=== PATIENT | female | born 1995 | race Caucasian/White ===

== ENCOUNTER → 2023-04-16 15:21 | Outpatient (BNVA) | payer OTHER, SELFPAY | PROVIDERS: Visit Provider Obstetrics & Gynecology | DX: N97.9 Female infertility, unspecified (principal) | CPT/HCPCS: 76830 ==

== ENCOUNTER → 2023-04-21 12:00 | Outpatient (BNVA) | payer OTHER, SELFPAY | PROVIDERS: Visit Provider Obstetrics & Gynecology | DX: N97.9 Female infertility, unspecified (principal) | CPT/HCPCS: 82670; 83001; 83520; 84443 ==

== ENCOUNTER → 2023-05-09 15:30 | Outpatient (BNVA) | payer OTHER, SELFPAY | PROVIDERS: Visit Provider Obstetrics & Gynecology | DX: N97.9 Female infertility, unspecified (principal) | CPT/HCPCS: 84144 ==

== ENCOUNTER 2023-07-14 07:52 | Outpatient (CLI) | payer OTHER, SELFPAY ==
--- NOTE | 2023-07-14 08:30 | FL_ITS ---
WS: [id number] HYSTEROGRAM PERFORMED UNDER FLUOROSCOPY HISTORY: N97.9 - Female infertility, unspecified. FLUOROSCOPY TIME: 0min [id number] minutes. # of spot films: 3. Cannulization of the cervix performed by Dr. Hall. During contrast injection there is good distention of the endometrial cavity. Normal appearance of th e fallopian tubes with spill rapidly into the peritoneal cavity. No hydrosalpinx or obstruction. IMPRESSION: Patent bilateral fallopian tubes. No uterine body mass.
--- NOTE | 2023-07-14 17:00 | P.PCN_ITS ---
Procedure Note: Pre-procedure diagnosis: Unable to conceive Post-procedure diagnosis: same Procedure: Patient was counseled regarding Hysterosalpingogram. Was informed of the possible risk but not limited to: Cramping pain during procedure and 1-2 days after procedure, Bleeding, (may occur for several days after procedure), Infection, Perforation of uterus, Allergic reaction to medications or instruments used, Vasovagal reaction, Disruption of unknown , Missed abnormal tissue. She signed the informed consent. A timeout protocol was performed prior to initiating the procedure. She denies allergy to Betadine or the dye. The patient was placed in dorsal lithotomy position and bimanual exam was performed showing to be normal. Bimanual examination was done to determine the position of the uterus. A sterile Vaginal speculum was inserted, and the cervix was visualized. The cervix was cleansed with antiseptic solution Betadine. The hysterosalpingogram catheter was passed through the cervical canal without difficulty. Once the patient was in position on the table images were obtained by the radiologist asked the dye was infused with little ressistance. The patient tolerated the procedure well without complications. Standard post- procedure care is explained and return precautions were given. She was counseled regarding possible complications and follow-up was instructed to call if she experiences any fever bleeding or pain. It is recommended that she be on pelvic rest for 3 days. She was also advised to take NSAIDs post procedure as needed. The Hysterosalpingogram showed a normal appearing intrauterine cavity with left and right tubal spillage of contrast. Patient was counseled regarding the findings and will follow-up as scheduled. Performing Provider: Kirill Hall Complications: None Other Information: Patient was counseled regarding Hysterosalpingogram. Was informed of the poss ible risk but not limited to: Cramping pain during procedure and 1-2 days after procedure, Bleeding, (may occur for several days after procedure), Infection, Perforation of uterus, Allergic reaction to medications or instruments used, Vasovagal reaction, Disruption of unknown , Missed abnormal tissue. She signed the informed consent. CPT code: 05511 Coding Level of Care Code Acute Code for Chg Fwd
== END 2023-07-14 07:53 | disposition home or self-care (01) ==
LOC: RAD 07:52
PROVIDERS: Visit Provider Obstetrics & Gynecology
DX: N97.9 Female infertility, unspecified (principal)
CPT/HCPCS: 74740

== ENCOUNTER → 2023-09-12 13:23 | Outpatient (BNVA) | payer OTHER, SELFPAY | PROVIDERS: Visit Provider Obstetrics & Gynecology | DX: N92.6 Irregular menstruation, unspecified (principal) | CPT/HCPCS: 81025 ==

== ENCOUNTER → 2024-01-26 15:35 | Outpatient (BNVA) | payer OTHER, SELFPAY | PROVIDERS: Visit Provider Nurse Practitioner Women's Health | DX: N97.9 Female infertility, unspecified (principal) | CPT/HCPCS: 84144 ==

== ENCOUNTER → 2024-04-09 09:55 | Outpatient (BNVA) | payer OTHER, SELFPAY | PROVIDERS: Visit Provider Nurse Practitioner Women's Health | DX: N91.2 Amenorrhea, unspecified (principal) | CPT/HCPCS: 81025 ==

== ENCOUNTER → 2024-04-14 15:03 | Outpatient (BNVA) | payer OTHER, SELFPAY | PROVIDERS: Visit Provider Nurse Practitioner Women's Health | DX: O09.811 Supervision of pregnancy resulting from assisted reproductive technology, first trimester (principal); Z36.87 Encounter for antenatal screening for uncertain dates; Z3A.01 Less than 8 weeks gestation of pregnancy | CPT/HCPCS: 76817 ==

== ENCOUNTER → 2024-04-19 15:15 | Outpatient (BNVA) | payer OTHER, SELFPAY | PROVIDERS: Visit Provider Nurse Practitioner Women's Health | DX: O20.9 Hemorrhage in early pregnancy, unspecified (principal) | CPT/HCPCS: 84702; 86850; 86900 ==

== ENCOUNTER → 2024-04-21 15:36 | Outpatient (BNVA) | payer OTHER, SELFPAY | PROVIDERS: Visit Provider Nurse Practitioner Women's Health | DX: O20.9 Hemorrhage in early pregnancy, unspecified (principal) | CPT/HCPCS: 84702; 85025 ==

== ENCOUNTER → 2024-04-22 11:32 | Outpatient (BNVA) | payer OTHER, SELFPAY | PROVIDERS: Visit Provider Nurse Practitioner Women's Health | DX: Z36.9 Encounter for antenatal screening, unspecified (principal) | CPT/HCPCS: 76817 ==

== ENCOUNTER 2024-04-23 09:07 | Outpatient (CLI) | payer OTHER, SELFPAY | END 2024-04-23 09:08 | disposition home or self-care (01) | PROVIDERS: Visit Provider Nurse Practitioner Women's Health | DX: O20.0 Threatened abortion (principal) | CPT/HCPCS: 84702 ==

== ENCOUNTER → 2024-04-28 16:23 | Outpatient (BNVA) | payer OTHER, SELFPAY | PROVIDERS: Visit Provider Nurse Practitioner Women's Health | DX: O03.4 Incomplete spontaneous abortion without complication (principal) | CPT/HCPCS: 84702 ==

== ENCOUNTER → 2024-04-29 15:23 | Outpatient (BNVA) | payer OTHER, SELFPAY | PROVIDERS: Visit Provider Nurse Practitioner Family | DX: J02.9 Acute pharyngitis, unspecified (principal) | CPT/HCPCS: 87880 ==

== ENCOUNTER → 2024-05-10 15:27 | Outpatient (BNVA) | payer OTHER, SELFPAY | PROVIDERS: Visit Provider Nurse Practitioner Women's Health | DX: O03.4 Incomplete spontaneous abortion without complication (principal) | CPT/HCPCS: 84702 ==

== ENCOUNTER → 2025-03-24 15:12 | Outpatient (BNVA) | payer OTHER, SELFPAY | PROVIDERS: Visit Provider Nurse Practitioner Women's Health | DX: Z01.419 Encounter for gynecological examination (general) (routine) without abnormal findings (principal); N97.0 Female infertility associated with anovulation; R53.83 Other fatigue | CPT/HCPCS: 80053; 82306; 82465; 83002; 83036; 83718; 83721; 84402; 84403; 84443; 85025 ==

== ENCOUNTER → 2025-04-18 16:03 | Outpatient (BNVA) | payer OTHER, SELFPAY | PROVIDERS: Visit Provider Nurse Practitioner Women's Health | DX: N97.0 Female infertility associated with anovulation (principal) | CPT/HCPCS: 84144 ==